=== PATIENT | female | born 1990 | race Caucasian/White ===

== ENCOUNTER 2018-04-21 19:54 | Emergency (ER) | payer OTHER, MEDICAID ==
[~2018-04-21] VITALS: Ht 160 cm; Wt 63.5 kg
[~2018-04-21 19:54] MED LIST: ACCUNEB SO1.25 MG/1; ACCUNEB SO1.25 MG/1 INH; ALBUTEROL2.5 MG/0.1 INH; ALBUTEROL2.5 MG/3 M IH; ALBUTEROL2.5 MG/31 INH; CEPHALEXIN 500500 M3 PO; CLARITIN10 MG PO; CORTISONE57 GM; DOXYCYCLINE 10100 M1 PO; DOXYCYCLINE 10100 MG PO; DULARA; DULERA 100 MCG/13 GM INH; FLONASE 0.05%50 MCG NASAL; LORATADINE; MEDROLDOSEPACK PO; PREDNISONE 10 M10 M1 PO; PREDNISONE 20 M20 M1 PO; PREDNISONE 20 M20 MG; PREDNISONE 20 M20 MG PO; PREDNISONE50 MG PO; PRENATAL; PROVENTIL HFA6.7 G1; PULMICORT FLE180 MCG INH; SINGULAIR; SINGULAIR 10 MG10 M1 PO; ULTRAM 50MG TAB50 MG PO
[2018-04-21 20:33] LABS: ABSOLUTE EOSINOPHILS 0.6 thou/uL (0.0-0.7); ABSOLUTE MONOCYTES 0.5 thou/uL (0.0-1.2); ABSOLUTE NEUTROPHILS 4.3 thou/uL (1.6-8.1); BASOPHILS 0.4 %; EOSINOPHILS 7.4 %; HEMOGLOBIN 14.6 gm/dL (12.0-15.0); LYMPHOCYTES 35.7 %; MCH 30.8 pg (26.0-34.0); MCHC 33.9 g/dL (28.0-37.0); MPV 7.7 fl. (7.2-11.1); NUCLEATED RBCS 0 /100WBC; PLATELET COUNT* 256 thou/uL (150-400); POLYS 50.5 %; RBC 4.73 mil/uL (4.20-5.00); RDW-CV 13.3 % (10.5-14.5); WBC 8.5 thou/uL (4.0-11.0)
[2018-04-21 20:38] LABS: URINE BILIRUBIN NEGATIVE (Negative); URINE BLOOD NEGATIVE (Negative); URINE CLARITY CLEAR; URINE COLOR YELLOW; URINE GLUCOSE-RANDOM NEGATIVE (Negative); URINE KETONES NEGATIVE (Negative); URINE LEUKOCYTES-REFLEX NEGATIVE (Negative); URINE NITRITE-REFLEX NEGATIVE (Negative); URINE PROTEIN NEGATIVE (Negative); URINE SPECIFIC GRAVITY >= 1.030 (1.005-1.030); URINE UROBILINOGEN 0.2 E.U./dl (0.2-1.0)
[2018-04-21 20:40] LABS: CREATININE 0.8 mg/dL (0.6-1.3); POTASSIUM 3.7 mmol/L (3.5-5.1)
[2018-04-21 20:45] LABS: ALBUMIN 4.4 g/dL (3.4-5.0); TOTAL BILIRUBIN 0.5 mg/dL (<0.1-1.0); TOTAL PROTEIN 7.7 g/dL (6.4-8.2)
[2018-04-21] MEDS ORDERED: MEDROLDOSEPACK PO (21:38)
[2018-04-21 21:54] VITALS: BP 117/81
--- NOTE | 2018-04-22 11:09 | EKG ---
[place] [address] ELECTROCARDIOGRAM REPORT Name: HUGO ZHU Room: [facility]#: [id number] Admission: 04/21/18 Attend Phys: Discharge: 04/21/18 Date of : [birth year] Report #: [id number] THIS REPORT FOR: //name// ED Test Date: 2018-04-21 Test Time: 19:59:34 Pat Name: HUGO ZHU Department: Room: Gender: F Vice President Regulatory: [place] : 1990 Requested By: Luisa Tapia Order Number: [id number] MD: Lance Uribe Measurements Intervals [place] Rate: 71 P: 29 WA: 133 QRS: 86 QRSD: 99 T: 47 QT: 394 QTc: 429 Interpretive Statements Sinus rhythm No previous ECG available for comparison Electronically Signed On 04-22-2018 11:08:55 CDT by Lance Uribe [email or web address] <ELECTRONICALLY SIGNED> By: Lance Uribe MD, FACC 04/22/18 1108 [id number] 58 Lance Uribe MD, FACC /EPI
== END 2018-04-21 21:55 | disposition home or self-care (01) ==
LOC: M.ERS 19:54
PROVIDERS: Nurse Practitioner Family
DX: L25.9 Unspecified contact dermatitis, unspecified cause (principal); R07.89 Other chest pain; K21.9 Gastro-esophageal reflux disease without esophagitis; J45.909 Unspecified asthma, uncomplicated; Z88.6 Allergy status to analgesic agent; Z88.2 Allergy status to sulfonamides; Z91.040 Latex allergy status; Z88.0 Allergy status to penicillin; Z88.1 Allergy status to other antibiotic agents; Z88.8 Allergy status to other drugs, medicaments and biological substances

== ENCOUNTER 2018-08-05 00:12 | Emergency (ER) | payer OTHER, MEDICAID ==
[~2018-08-05] VITALS: Ht 157.5 cm; Wt 68.5 kg
[2018-08-05] MEDS ORDERED: PRENATAL (00:26)
[2018-08-05] MEDS ORDERED: CLARITIN10 MG (00:26)
[2018-08-05] MEDS ORDERED: REGLAN 10 MG TA10 MG (00:27)
[2018-08-05] MEDS ORDERED: ALBUTEROL2.5 MG/31 (00:28)
[2018-08-05] MEDS ORDERED: VENTOLIN HFA 1818 GM (00:28)
[2018-08-05] MEDS ORDERED: SINGULAIR 10 MG10 M1 (00:29)
[2018-08-05] MEDS ORDERED: PULMICORT0.5 MG/22 INH (00:45)
[2018-08-05 01:05] LABS: INFLUENZA A ANTIGEN None Detected (None Detect); INFLUENZA B ANTIGEN None Detected (None Detect)
[2018-08-05] MEDS ORDERED: ALBUTEROL2.5 MG/3 M INH (01:24)
[2018-08-05] MEDS ORDERED: PROAIR HFA8.5 GM INH (01:24)
[2018-08-05 01:36] VITALS: BP 115/61
== END 2018-08-05 01:39 | disposition home or self-care (01) ==
LOC: M.ERS 00:12
PROVIDERS: Emergency Medicine
DX: O99.512 Diseases of the respiratory system complicating pregnancy, second trimester (principal); J40 Bronchitis, not specified as acute or chronic; K21.9 Gastro-esophageal reflux disease without esophagitis; Z88.0 Allergy status to penicillin; Z88.1 Allergy status to other antibiotic agents; Z88.2 Allergy status to sulfonamides; Z88.5 Allergy status to narcotic agent; Z88.6 Allergy status to analgesic agent; Z88.8 Allergy status to other drugs, medicaments and biological substances; Z91.040 Latex allergy status; Z3A.18 18 weeks gestation of pregnancy

== ENCOUNTER 2018-10-25 21:25 | Emergency (ER) | payer OTHER, MEDICAID ==
[~2018-10-25] VITALS: Ht 157.5 cm; Wt 81.7 kg
[~2018-10-25 21:25] MED LIST changes: +ALBUTEROL2.5 MG/3 M INH; +ALBUTEROL2.5 MG/31; +CLARITIN10 MG; +PROAIR HFA8.5 GM INH; +PULMICORT0.5 MG/22 INH; +REGLAN 10 MG TA10 MG; +SINGULAIR 10 MG10 M1; +VENTOLIN HFA 1818 GM
[2018-10-25] MEDS ORDERED: ZANTAC 150MG T150 MG PO (21:36)
[2018-10-25] MEDS ORDERED: SYMBICORT80 MCG/4.1 INH (21:37)
[2018-10-25 21:49] VITALS: BP 132/61
== END 2018-10-25 21:49 | disposition home or self-care (01) ==
LOC: M.ERS 21:25
DX: Z71.1 Person with feared health complaint in whom no diagnosis is made (principal); Z88.0 Allergy status to penicillin; Z88.1 Allergy status to other antibiotic agents; Z88.2 Allergy status to sulfonamides; Z88.6 Allergy status to analgesic agent; Z88.5 Allergy status to narcotic agent; Z88.8 Allergy status to other drugs, medicaments and biological substances

== ENCOUNTER 2020-03-04 11:18 | Emergency (ER) | payer OTHER, MEDICAID ==
[~2020-03-04] VITALS: Ht 157.5 cm; Wt 68.0 kg
[~2020-03-04 11:18] MED LIST changes: +SYMBICORT80 MCG/4.1 INH; +ZANTAC 150MG T150 MG PO
[2020-03-04 12:03] LABS: ABSOLUTE EOSINOPHILS 0.3 thou/uL (0.0-0.7); ABSOLUTE LYMPHOCYTES 1.8 thou/uL (0.8-5.3); ABSOLUTE MONOCYTES 0.4 thou/uL (0.0-1.2); BASOPHILS 0.6 %; EOSINOPHILS 4.9 %; HEMATOCRIT 41.2 % (37.0-47.0); HEMOGLOBIN 14.3 gm/dL (12.0-15.0); LYMPHOCYTES 32.5 %; MCH 31.3 pg (26.0-34.0); MCHC 34.7 g/dL (28.0-37.0); MCV 90.2 fL (80.0-100.0); MONOCYTES 7.1 %; MPV 7.3 fl. (7.2-11.1); NUCLEATED RBCS 0 /100WBC; PLATELET COUNT* 265 thou/uL (150-400); POLYS 54.9 %; RBC 4.57 mil/uL (4.20-5.00); RDW-CV 13.2 % (10.5-14.5); WBC 5.5 thou/uL (4.0-11.0)
[2020-03-04 12:13] LABS: CALCIUM 8.6 mg/dL (8.5-10.1); CREATININE 0.6 mg/dL (0.6-1.3); POTASSIUM 3.9 mmol/L (3.5-5.1)
[2020-03-04 12:17] LABS: ALBUMIN 3.9 g/dL (3.4-5.0); MAGNESIUM 2.1 mg/dL (1.8-2.4); TOTAL BILIRUBIN 0.4 mg/dL (<0.1-1.0); TOTAL PROTEIN 7.4 g/dL (6.4-8.2)
[2020-03-04] MEDS ORDERED: FLEXERIL PO (13:34)
[2020-03-04 13:39] VITALS: BP 120/77
== END 2020-03-04 13:39 | disposition home or self-care (01) ==
LOC: M.ERS 11:18
PROVIDERS: Emergency Medicine Emergency Medical Services
DX: S76.812A Strain of other specified muscles, fascia and tendons at thigh level, left thigh, initial encounter (principal); J45.909 Unspecified asthma, uncomplicated; K21.9 Gastro-esophageal reflux disease without esophagitis; Z91.040 Latex allergy status; Z88.0 Allergy status to penicillin; Z88.1 Allergy status to other antibiotic agents; Z88.2 Allergy status to sulfonamides; Z88.6 Allergy status to analgesic agent; Z88.8 Allergy status to other drugs, medicaments and biological substances; X58.XXXA Exposure to other specified factors, initial encounter; Y93.89 Activity, other specified; Y92.89 Other specified places as the place of occurrence of the external cause; Y99.8 Other external cause status